=== PATIENT | female | born 1985 | race African-American/Black ===

== ENCOUNTER 2019-01-23 13:17 | Emergency (ER) | payer MEDICAID ==
[~2019-01-23] VITALS: Ht 154.9 cm; Wt 82.0 kg
[2019-01-23] MEDS ORDERED: KETOROLAC 60MG/2ML VIAL IM ONE (14:45)
[2019-01-23] MEDS ORDERED: IBUPROFEN 600MG TABLET PO ONE (14:45)
[2019-01-23 15:11] VITALS: BP 139/81
== END 2019-01-23 15:00 | disposition left against medical advice (07) ==
LOC: ER 13:17
DX: M54.2 Cervicalgia (principal); R10.2 Pelvic and perineal pain; R30.0 Dysuria; Z87.891 Personal history of nicotine dependence
CPT/HCPCS: 99281

== ENCOUNTER 2019-08-27 09:57 | Emergency (ER) | payer MEDICAID, OTHER ==
[~2019-08-27] VITALS: Ht 165.1 cm; Wt 91.0 kg
[2019-08-27] MEDS ORDERED: LORAZEPAM 1MG TABLET PO ONE (11:00)
[2019-08-27 11:05] VITALS: BP 139/68
== END 2019-08-27 11:24 | disposition home or self-care (01) ==
LOC: ER 10:24
DX: F41.0 Panic disorder [episodic paroxysmal anxiety] (principal); Z98.890 Other specified postprocedural states
CPT/HCPCS: 99283